=== PATIENT | male | born 1990 | race Caucasian/White ===

== ENCOUNTER 2023-01-24 15:01 | Emergency (ER) | payer OTHER, SELFPAY ==
[2023-01-24 15:17] VITALS: BP 172/102; PULSE 99; RESP 20; TEMP 36.6; O2SAT 99; BMI 63.1
--- NOTE | 2023-01-24 15:20 | PC.NURSE ---
Last dose tylenol last night. No relief with Flexeril today and salonpas
--- NOTE | 2023-01-24 15:32 | DI.CT.S_ITS ---
PROCEDURE: CT KIDNEY URETER BLADDER (KUB) INDICATIONS: rt flank pain TECHNIQUE: Axial sections were acquired from the lung bases to the pubic symphysis. Coronal and sagittal reformats were performed. For radiation dose reduction, the following was used: automated exposure control, adjustment of mA and/or kV according to patient size. COMPARISON: None. FINDINGS: Image quality: Excellent. Lung bases: Unremarkable. Heart: No significant findings. URINARY: Right Kidney: No stones or hydronephrosis. Right Ureter: No hydroureter. Left Kidney: No stones or hydronephrosis. Left Ureter: No hydroureter. Bladder: Normal wall thickness. No stones. ABDOMEN: Liver: Liver measures 22.9 cm with steatosis. Gallbladder: Unremarkable. Biliary ducts: Unremarkable. Pancreas: Unremarkable. Spleen: Unremarkable. Adrenal Glands: Unremarkable. Stomach and Bowel: Stomach, small bowel loops, and colon are unremarkable. Appendix is normal. Peritoneum: No abnormal intraperitoneal fluid. No free air. Ventral Wall: No hernia. Abdominal Nodes: No enlarged retroperitoneal or mesenteric lymph nodes. Vessels: Aorta and inferior vena cava are normal in size. PELVIS: Pelvic Organs: Unremarkable. Pelvic Nodes: Unremarkable. Miscellaneous: No inguinal hernias are seen. Bones: Unremarkable. IMPRESSION: No visualized cause of flank pain. Appendix is normal. Hepatomegaly with steatosis. Dictated by: Sarai Leonard M.D. on 01/24/2023 at 16:39 Approved by: Sarai Leonard M.D. on 01/24/2023 at 16:40
[2023-01-24] MEDS: SODIUM CHLORIDE 0.9% 1,000 ML 1000 ML IV (15:48)
[2023-01-24 15:49] LABS: Add Manual Diff / Slide Review NO; Basophils Absolute Auto 0 /uL (0-100); Basophils Percent Auto 0.5 % (0-2); Eosinophils Absolute Auto 200 /uL (0-450); Eosinophils Percent Auto 2.6 % (2-4); Hematocrit 43.3 % (41-53); Hemoglobin 14.5 g/dL (13.5-17.5); Lymphocytes Absolute Auto 2300 /uL (1100-4500); Lymphocytes Percent Auto 28.4 % (25-40); Mean Corpuscular HGB Conc 33.5 % (30-36); Mean Corpuscular Hemoglobin 29.1 PG (26-34); Monocytes Absolute Auto 600 /uL (0-900); Monocytes Percent Auto 7.9 % (3-14); Neutrophils Absolute Auto 4800 /uL (1500-7000); Neutrophils Percent Auto 60.6 % (50-75); Platelet Count 236 X10^3/uL (150-400); Red Blood Cell Count 4.98 X10^6/uL (4.5-5.9); Red Cell Distribution Width 15.3 % (11.6-14.8); White Blood Cell Count 7.9 X10^3/uL (4.5-11.0)
[2023-01-24] MEDS: ONDANSETRON 4 MG/2 ML INJ IV (15:49)
[2023-01-24] MEDS: KETOROLAC 30 MG/ML VIAL 15 MG IV (15:49)
[2023-01-24] MEDS: HYDROMORPHONE 1 MG INJ IV (15:49)
[2023-01-24 16:01] LABS: Alanine Aminotransferase 70 IU/L (<50); Albumin 4.6 g/dL (3.5-5.0); Albumin Globulin Ratio 1.3 (1.0-2.8); Alkaline Phosphatase 63 U/L (38-126); Aspartate Aminotransferase 38 IU/L (17-59); BUN Creatinine Ratio 15.9 (6-22); Bilirubin Total 0.3 mg/dL (0.2-1.3); Blood Urea Nitrogen 10 mg/dL (9-20); Calcium 9.1 mg/dL (8.4-10.2); Carbon Dioxide 33 mmol/L (22-32); Chloride 99 mmol/L (98-107); Estimated Glomerular Filt Rate > 60 mL/min (>60); Globulin 3.6 g/dL (1.7-4.1); Glucose 97 mg/dL (70-100); HEMOLYSIS < 15 (0-50); Potassium 4.1 mmol/L (3.4-5.1); Sodium 140 mmol/L (137-145); Total Protein 8.2 g/dL (6.3-8.2)
[2023-01-24 16:09] LABS: Appearance Urine UA CLEAR; Bilirubin Urine UA NEGATIVE (NEGATIVE); Color Urine UA YELLOW; Glucose Urine UA NEGATIVE (Negative); Ketones Urine UA NEGATIVE (NEGATIVE); Leukocyte Esterase Urine UA NEGATIVE (NEGATIVE); Nitrite Urine UA NEGATIVE (Negative); Occult Blood Urine UA NEGATIVE (Negative); Protein Urine UA NEGATIVE (Negative); Urobilinogen Urine UA 0.2 E.U./dL (0.2); pH Urine UA 6.5 (4.5-8.0)
[2023-01-24 16:27] LABS: Bacteria Urine None Seen; Culture Indicated Urine Cult Not Indicated; RBC Urine None Seen (0-5/HPF); Squamous Epithelial Cell Urine 0-1 /HPF (0-5/HPF); WBC Urine None Seen (0-5/HPF)
--- NOTE | 2023-01-24 18:31 | ED_ITS ---
HPI - Back Pain/Injury General Chief Complaint: Back Pain/Injury Stated Complaint: Back pain Time Seen by Provider: 01/24/23 15:27 History of Present Illness HPI Narrative: Patient states back pain started yesterday. It is right lower back pain lateral to midline. Below the ribs. Below the kidneys. Skin above the buttock. No known injury. No prior history of MRI or back surgery. No IV drug use or diabetes. No chemotherapy. Denies any hematuria urinary frequency. No saddle paresthesia. Pain does not radiate. No leg pain or weakness or numbness Related Data Previous Rx's Medication Instructions Recorded baclofen 20 mg tablet 20 mg PO TID PRN pain (scale score 01/24/23 4-6) #20 tabs Review of Systems Review of Systems Narrative: GENERAL: negative chills, fatigue, malaise, fever, sweats. HEENT: negative sinus pain, ear pain, sore throat RESPIRATORY: negative dyspnea, cough CARDIOVASCULAR: negative chest pain, palpitations GASTROINTESTINAL: negative nausea, vomiting, abdominal pain : negative dysuria, frequency, hematuria MUSCULOSKELETAL: Positive back pain muscle or bony pain SKIN: negative rash, skin lesions NEUROLOGIC: negative weakness, numbness ROS Unobtainable: All systems reviewed & are unremarkable except as noted in HPI and below Exam Narrative Exam Narrative: GENERAL: in no distress, not toxic not dyspneic HEAD: Normocephalic. EYES: Pupils equal round ENT: Mucous membranes moist. NECK: Trachea midline. CARDIOVASCULAR: Regular rate and rhythm without murmurs RESPIRATORY: Clear to auscultation. Breath sounds equal bilaterally. No wheezes, rales, or rhonchi. GASTROINTESTINAL: Abdomen soft, non-tender EXTREMITIES: No gross deformities. BACK: There is tenderness to the right lower paralumbar muscle area. Below the kidneys. No CVA tenderness. No midline tenderness or step-off. Increased pain with side bending leaning forward and back. Steady self gait in the room and hallway. Strong bilateral patellar reflexes. Strong bilateral ankle flexion- extension. Light touch intact to legs and feet. Patient wearing shorts. NEURO: AOx4. SKIN: Warm and dry PSYCH: Not anxious, is cooperative Initial Vital Signs Initial Vital Signs: Vital Signs Temperature 97.8 F 01/24/23 15:17 Pulse Rate 99 H 01/24/23 15:17 Respiratory Rate 20 01/24/23 15:17 Blood Pressure 172/102 H 01/24/23 15:17 Pulse Oximetry 99 01/24/23 15:17 Oxygen Delivery Method Room Air 01/24/23 15:17 Course Orders Ordered: Discontinued Medications Baclofen (Baclofen 10 Mg Tablet) 20 mg PO NOW ONE Stop: 01/24/23 18:34 Last Admin: 01/24/23 18:44 Dose: 20 mg Documented By: ALONZO Hydromorphone HCl (Hydromorphone 1 Mg Inj) 1 mg IV NOW ONE Stop: 01/24/23 15:32 Last Admin: 01/24/23 15:49 Dose: 1 mg Documented By: ALONZO Sodium Chloride (Normal Saline 0.9%) 1,000 mls @ 1,000 mls/hr IV BOLUS ONE Stop: 01/24/23 16:30 Last Infusion: 01/24/23 17:19 Dose: 0 mls/hr Documented By: Admin: 01/24/23 15:48 Dose: 1,000 mls/hr Documented By: ALONZO Ketorolac Tromethamine (Ketorolac 30 Mg/Ml Vial) 15 mg IV NOW ONE Stop: 01/24/23 15:32 Last Admin: 01/24/23 15:49 Dose: 15 mg Documented By: ALONZO Ondansetron HCl (Ondansetron 4 Mg/2 Ml Inj) 4 mg IV NOW ONE Stop: 01/24/23 15:33 Last Admin: 01/24/23 15:49 Dose: 4 mg Documented By: ALONZO Vital Signs Vital signs: Vital Signs - 8 hr 01/24/23 15:17 Temperature 97.8 F Pulse Rate 99 H Respiratory Rate 20 Blood Pressure 172/102 H Pulse Oximetry 99 Oxygen Delivery Method Room Air MDM - Back Pain/Injury Lab Data 01/24/23 15:40 01/24/23 15:40 Labs: Lab Results 01/24/23 01/24/23 01/24/23 Range/Units 15:40 15:40 15:40 WBC 7.9 (4.5-11.0) X10^3/uL RBC 4.98 (4.5-5.9) X10^6/uL Hgb 14.5 (13.5-17.5) g/dL Hct 43.3 (41-53) % MCV 87.0 (80-100) fL MCH 29.1 (26-34) PG MCHC 33.5 (30-36) % RDW 15.3 H (11.6-14.8) % Plt Count 236 (150-400) X10^3/uL Neut % (Auto) 60.6 (50-75) % Lymph % (Auto) 28.4 (25-40) % [place] % (Auto) 7.9 (3-14) % Eos % (Auto) 2.6 (2-4) % Baso % (Auto) 0.5 (0-2) % Neut # (Auto) 4800 (3780-7623) /uL Lymph # (Auto) 2300 (4066-4135) /uL [place] # (Auto) 600 (0-900) /uL Eos # (Auto) 200 (0-450) /uL Baso # (Auto) 0 (0-100) /uL Sodium 140 (137-145) mmol/L Potassium 4.1 (3.4-5.1) mmol/L Chloride 99 (98-107) mmol/L Carbon Dioxide 33 H (22-32) mmol/L BUN 10 (9-20) mg/dL Creatinine 0.63 L (0.66-1.25) mg/dL Estimated GFR > 60 (>60) mL/min BUN/Creatinine Ratio 15.9 (6-22) Glucose 97 (70-100) mg/dL Calcium 9.1 (8.4-10.2) mg/dL Total Bilirubin 0.3 (0.2-1.3) mg/dL AST 38 (17-59) IU/L ALT 70 H (<50) IU/L Alkaline Phosphatase 63 (38-126) U/L Total Protein 8.2 (6.3-8.2) g/dL Albumin 4.6 (3.5-5.0) g/dL Globulin 3.6 (1.7-4.1) g/dL Albumin/Globulin Ratio 1.3 (1.0-2.8) Urine Color Yellow Urine Appearance Clear Urine pH 6.5 (4.5-8.0) Ur Specific [place] 1.020 (1.000-1.035) Urine Protein Negative (Negative) Urine Glucose (UA) Negative (Negative) g/dL Urine Ketones Negative (NEGATIVE) Urine Occult Blood Negative (Negative) Urine Nitrate Negative (Negative) Urine Bilirubin Negative (NEGATIVE) Urine Urobilinogen 0.2 (0.2) E.U./dL Ur Leukocyte Esterase Negative (NEGATIVE) Urine RBC None seen (0-5/HPF) Urine WBC None seen (0-5/HPF) Ur Squamous Epith Cells 0-1 /hpf (0-5/HPF) Urine Bacteria None seen (None) Ur Culture Indicated? Cult not indicated MDM Narrative Medical decision making narrative: After history and exam Toradol Dilaudid CBC CMP urinalysis CT abdomen and pelvis KUB ordered MDM CC: Complicating co-morbidities: Patient is obese Data collected from: Patient Medical records reviewed: No recent visits Differential considered: Includes but not limited to kidney stone lumbar strain pyelonephritis UTI degenerative disc disease Exam documented above, pertinent findings include: Tender right lower back Lab Test results independently reviewed as above. Pertinent findings: WBC 7.9 AST 38 ALT 70, urinalysis negative ketones negative nitrate negative leukocyte esterase negative blood Imaging studies independently reviewed: CT abdomen pelvis no acute process Consultations: None indicated Treatments: Toradol Dilaudid Zofran baclofen normal saline Re-evaluations: 6:30 p.m.. Patient feeling much better. Reviewed results with him they are reassuring. Remains neurologically intact. He does admit he is very weight heavy. Understands he has been trying to lose weight. This can impact his lumbar discs causing nerve impingement. 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 He does have primary care to follow up with. Pain is controlled at time of discharge. Work note provided Discussion: Appropriate for discharge home. Nontoxic in discharge. Return precautions reviewed with him. Patient is neurologically intact. No MRI indicated this time. Low risk factors for abscess of the spine. Labs and imaging and exam are reassuring. Diagnosis: Acute low back pain Discharge Plan Departure Patient Disposition: Home Clinical Impression: Acute low back pain Instructions: DI for Low Back Pain Activity Restrictions/Additional Instructions: No driving operating machinery tonight or when taking prescribed muscle relaxer. Return if worse if any questions or concerns. See family doctor next week for re-evaluation. Work note is provided for you. Prescriptions: New baclofen 20 mg tablet 20 mg PO TID PRN (Reason: pain (scale score 4-6)) Qty: 20 0RF Referrals: Mikel Lucero PA-C [Primary Care Provider] - Stand Alone Forms: Patient Portal/API, Work Release Note
[2023-01-24] MEDS: BACLOFEN 10 MG TABLET 20 MG PO (18:44)
[2023-01-24 18:50] VITALS: BP 138/66; PULSE 72; RESP 16; O2SAT 98
== END 2023-01-24 18:51 | disposition home or self-care (01) ==
PROVIDERS: Emergency Provider Emergency Medicine; PCP Student in an Organized Health Care Education/Training Program
DX: M54.50 Low back pain, unspecified (principal); E66.9 Obesity, unspecified; Z68.44 Body mass index [BMI] 60.0-69.9, adult
CPT/HCPCS: 36415; 74176; 80053; 81001; 85025; 96361; 96374; 96375; 99284; J1170; J1885; J2405